=== PATIENT | male | born 1960 | race Hispanic/Latino ===

== ENCOUNTER 2017-07-28 16:43 | Outpatient (CLI) | payer OTHER ==
[2017-07-28 18:16] LABS: #Basophils 0.1 thou/uL (0.0-0.2); #Eosinphils 0.3 thou/uL (0.0-0.7); #Lymphocytes 1.1 thou/uL (1.20-3.40); #Monocytes 0.6 thou/uL (0.11-0.59); #Neutrophils 4.9 thou/uL (1.40-6.50); %Basophils 1.2 % (0.0-1.0); %Lymphocytes 15.9 % (21.0-51.0); %Monocytes 8.6 % (0.0-10.0); %Neutrophils 70.3 % (42.0-75.0); Hemoglobin 14.5 g/dL (14.0-18.0); Mean Corpuscular Hemoglobin 31.4 pg (27.0-31.0); Mean Corpuscular Volume 95.1 fl (80.0-94.0); Platelet Count 140 thou/uL (130-400); RBC Distribution Width 12.1 % (11.5-14.5); Red Blood Cell (RBC) Count 4.61 mill/uL (4.70-6.10); White Blood Cell (WBC) Count 6.9 thou/uL (4.8-10.8)
[2017-07-28 18:25] LABS: ALT (SGPT) 48 U/L (8-55); AST (SGOT) 37 U/L (5-34); Albumin 4.1 g/dL (3.5-5.0); Alkaline Phosphatase 68 U/L (40-150); Anion Gap 13 mmol/L (10-20); BUN (Urea Nitrogen) 18 mg/dL (8.4-25.7); Bilirubin, Total 0.3 mg/dL (0.2-1.2); CK (CPK) 188 U/L (30-200); Calc. Creatinine Clearance 0 mL/min (70-130); Calcium 9.4 mg/dL (7.8-10.44); Carbon Dioxide 24 mmol/L (22-29); Chloride 108 mmol/L (98-107); Estimated GFR-MDRD 60; Globulin 3.5 g/dL (2.4-3.5); Glucose 180 mg/dL (70-105); Magnesium 2.3 mg/dL (1.6-2.6); Potassium 3.9 mmol/L (3.5-5.1); Protein, Total 7.6 g/dL (6.0-8.3); Sodium 141 mmol/L (136-145)
== END 2017-07-28 16:44 | disposition home or self-care (01) ==
LOC: HPCALD 16:43
PROVIDERS: ATTEND Family Medicine
DX: E11.9 Type 2 diabetes mellitus without complications (principal); R25.2 Cramp and spasm
CPT/HCPCS: 80053; 82550; 83735; 84443; 85025

== ENCOUNTER 2017-08-14 08:00 | Outpatient (CLI) | payer OTHER ==
[2017-08-14] MEDS ORDERED: Iopamidol 370 76% 100 ML VIAL ONE (09:00)
--- NOTE | 2017-08-14 22:03 | CT ---
CT ABDOMEN WITH AND WITHOUT CONTRAST 08/14/17 The patient presents with a known adrenal mass. Comparison is made with a prior CT dated 08/05/16. A CT adrenal washout study was done with initial images noncontrast, then immediate and 15 minute de layed images to follow. The left adrenal mass is again noted. Its size is stable, measuring 1.[address] num bers of the mass were 17, immediate postcontrast 48, and 15 minute washout 17. This yields and absol lime washout of 100% and a relative washout of 65%. These values are highly suggestive of an adrenal adenoma. The remainder of the scan was unremarkable. the lung bases are clear. The liver, spleen, pancreas, r ight adrenal gland, kidneys, and aorta showed no acute findings. A 1 cm cyst is seen in the left kid harman. There has been a prior cholecystectomy. The visible portions of the bowel were unremarkable. Th ere is no free air or free fluid. IMPRESSION: 1.5 cm left adrenal mass with no change in size since last year. The adrenal washout numbers were hi ghly suggestive of an adenoma. Given the lack of aircraft launch and recovery technician time and the washout numbers obtained, I do not feel that further scanning is indicated. POS: HOME
== END 2017-08-14 08:01 | disposition home or self-care (01) ==
LOC: BURCT 08:00
PROVIDERS: ATTEND Family Medicine
DX: E27.9 Disorder of adrenal gland, unspecified (principal)
CPT/HCPCS: 74170; A4216

== ENCOUNTER 2020-05-31 10:26 | Outpatient (CLI) | payer OTHER ==
--- NOTE | 2020-06-01 07:53 | RAD ---
Radiograph abdomen one view: 05/31/2020 HISTORY: 60-year-old male with left flank pain FINDINGS: A few tiny focal calcifications are visualized in the left hemipelvis. At least some, and possibly al l, are phleboliths. It is not possible to rule out the possibility that one of these could be a distal ureteral calculus. Multiple small metallic clips are present at the inferior aspect of the pel vis, perhaps in the prostate bed. No evidence of bowel obstruction. No definite calculus identified overlying renal shadows. IMPRESSION: 1. Several tiny calcifications in the left hemipelvis. 2. Status post prostate procedure. 3. For flank pain, consider CT.
== END 2020-05-31 10:27 | disposition home or self-care (01) ==
LOC: BURRAD 10:26
PROVIDERS: ATTEND Family Medicine
DX: N20.1 Calculus of ureter (principal); N28.89 Other specified disorders of kidney and ureter; Z98.890 Other specified postprocedural states
CPT/HCPCS: 74018

== ENCOUNTER 2021-01-25 14:39 | Outpatient (CLI) | payer BC, OTHER | END 2021-01-25 14:40 | disposition home or self-care (01) | LOC: BURRAD 14:39 | PROVIDERS: ATTEND Family Medicine | DX: S20.211A Contusion of right front wall of thorax, initial encounter (principal); S22.41XA Multiple fractures of ribs, right side, initial encounter for closed fracture ==

== ENCOUNTER 2022-08-29 15:42 | Outpatient (CLI) | payer OTHER | END 2022-08-29 15:43 | disposition home or self-care (01) | LOC: BURRAD 15:42 | PROVIDERS: ATTEND Family Medicine | DX: M25.512 Pain in left shoulder (principal) ==